=== PATIENT | female | born 1950 | race Caucasian/White ===

== ENCOUNTER 2023-10-01 18:37 | Emergency (ER) | payer MEDICARE ==
[~2023-10-01] VITALS: Ht 177.8 cm; Wt 87.7 kg
[2023-10-01 18:47] VITALS: BP 143/81; PULSE 90; RESP 18; TEMP 98.2; O2SAT 94
[2023-10-01 19:25] LABS: BILIRUBIN,URINE NEGATIVE (Neg); CLARITY,URINE CLOUDY (Clear); COLOR,URINE YELLOW (Yellow); GLUCOSE, URINE NEGATIVE (Neg); KETONES,URINE NEGATIVE (Neg); LEUKOCYTE ESTERASE ,URINE LARGE (Neg); NITRITES, URINE POSITIVE (Neg); OCCULT BLOOD,URINE SMALL (Neg); PH,URINE 6.5 (4.8-8.0); PROTEIN,URINE NEGATIVE (Neg); UROBILINOGEN,URINE 0.2 E.U/dL (0.2-1.0)
[2023-10-01 19:26] LABS: UA COLLECTION TYPE CLN CATCH MIDSTREAM
[2023-10-01 19:43] LABS: WBC,URINE TNTC /HPF (0-4)
[2023-10-01 19:44] LABS: BACTERIA,URINE 1+ /HPF (Neg); SQUAMOUS EPITHELIAL CELL,UR FEW /LPF (FEW)
[2023-10-01 19:45] LABS: MUCUS STRANDS NONE SEEN /LPF (Neg)
[2023-10-01] MEDS ORDERED: CEPH-585 PO (19:57)
[2023-10-01] MEDS ORDERED: PHEN-716 PO (19:57)
[2023-10-01] MEDS: phenazopyridine 100mg tablet PO ONE (20:07)
[2023-10-01] MEDS: CefTRIAXone 1000mg IM Kit (w/lidocaine diluent) IM ONE (20:15)
== END 2023-10-01 20:19 | disposition home or self-care (01) ==
LOC: ER 18:38
DX: N39.0 Urinary tract infection, site not specified (principal); Z88.2 Allergy status to sulfonamides
CPT/HCPCS: 81001; 87077; 87088; 87186; 96372; 99283; J0696

== ENCOUNTER 2024-04-29 08:58 | Emergency (ER) | payer MEDICARE ==
[~2024-04-29] VITALS: Ht 175.3 cm; Wt 89.1 kg
[~2024-04-29 08:58] MED LIST: CEPH-585 PO; PHEN-716 PO
[2024-04-29 09:07] VITALS: BP 155/97; PULSE 85; O2SAT 96
[2024-04-29 11:37] VITALS: RESP 16
[2024-04-29] MEDS: ketorolac trometh 15mg/ml vial 15 MG/ML ML IM ONE (11:37)
[2024-04-29 11:57] VITALS: TEMP 98.4
== END 2024-04-29 11:59 | disposition home or self-care (01) ==
LOC: ER 08:59
DX: M54.50 Low back pain, unspecified (principal); Z88.2 Allergy status to sulfonamides; W19.XXXA Unspecified fall, initial encounter; Y93.89 Activity, other specified; Y92.89 Other specified places as the place of occurrence of the external cause; Y99.8 Other external cause status
CPT/HCPCS: 71045; 72100; 96372; 99284; J1885